=== PATIENT | female | born 2000 | race Caucasian/White ===

== ENCOUNTER 2023-12-25 15:34 | Outpatient (CLI) | payer OTHER, SELFPAY ==
[2023-12-25 16:37] LABS: SARS-CoV-2 RNA PCR Negative (Negative)
[2023-12-25 16:39] LABS: Influenza A QL RT-PCR Negative (Negative); Influenza B QL RT-PCR Negative (Negative); Strep Group A RT-PCR NOT DETECTED (Negative)
== END 2023-12-25 15:35 | disposition home or self-care (01) ==
PROVIDERS: PCP Family Medicine; Visit Provider Family Medicine
DX: J06.9 Acute upper respiratory infection, unspecified (principal)
CPT/HCPCS: 87636; 87651

== ENCOUNTER 2024-02-11 15:53 | Outpatient (CLI) | payer OTHER, SELFPAY ==
[2024-02-11 17:14] LABS: HIV 1 P24 AG Negative (Negative); HIV 1/2 AB Negative (Negative)
[2024-02-13 08:02] LABS: Trichomonas Vag PCR NOT DETECTED (NOT DETECTE)
[2024-02-13 08:26] LABS: Chlamydia trachomatis NOT DETECTED (NOT DETECTE); Neisseria gonorrhoeae PCR NOT DETECTED (NOT DETECTE)
[2024-02-13 12:08] LABS: RPR Screen NON-REACTIVE (NON-REACTIVE)
== END 2024-02-11 15:54 | disposition home or self-care (01) ==
LOC: CHSLAB 15:54
PROVIDERS: PCP Family Medicine; Visit Provider Family Medicine
DX: Z20.2 Contact with and (suspected) exposure to infections with a predominantly sexual mode of transmission (principal)
CPT/HCPCS: 36415; 86592; 86695; 86696; 87491; 87591; 87661; 87806